=== PATIENT | male | born 1975 | race Caucasian/White ===

== ENCOUNTER 2022-04-02 23:31 | Inpatient (IN) | payer OTHER ==
[2022-04-03] MEDS ORDERED: SODIUM CHLORIDE 1,000 ML IV STA (00:32)
[2022-04-03] MEDS ORDERED: DALBAVANCIN HCL 1,500 MG in DEXTROSE 5%-WATER - 500 ML IVPB ONE (00:59)
[2022-04-03] MEDS ORDERED: MAGNESIUM SULF 50% (8.12 MEQ/2 ML-1 GM VIAL) IVPB ONE (01:03)
[2022-04-03] MEDS ORDERED: INSULIN REGULAR HUMAN 100 UNITS/ML *VIAL IVPUSH ONE (01:03)
[2022-04-03] MEDS ORDERED: DALBAVANCIN HCL 500 MG VIAL (RESTRICTED TO ID ONLY) IVPB ONE (01:14)
[2022-04-03] MEDS ORDERED: MAGNESIUM SULFATE IN WATER 2 GM/50 ML IVPB IVPB ONE (01:15)
[2022-04-03 01:47] LABS: VENOUS BASE EXCESS -0.5 mmol/L (-2-2); VENOUS O2 SATURATION 38.7 % (70-80); VENOUS PCO2 51.5 mmHg (38-52); VENOUS PH 7.323 (7.310-7.410)
[2022-04-03 01:51] LABS: BASO % 0.4 % (0-2.0); EOS % 0.5 % (0-4.5); HEMATOCRIT 32.5 % (35.4-49); HEMOGLOBIN 10.3 GM/dL (11.7-16.9); LYMPH % 21.1 % (8-40); MCH 33.5 pg (25.7-33.7); MCHC 31.7 g/dl (32.0-35.9); MEAN CELL VOLUME 105.7 fl (80-96); MEAN PLT VOLUME 9.1 fl (7.5-11.1); MONO % 7.4 % (3.8-10.2); NEUT % 70.6 % (42.8-82.8); PLATELET COUNT 240 10^3/uL (134-434); RBC 3.07 M/mm3 (4.00-5.60); RDW 15.4 % (11.9-15.9); WHITE BLOOD COUNT 5.6 K/mm3 (4.0-10.0)
[2022-04-03 02:09] LABS: ALBUMIN 2.6 g/dl (3.4-5.0); BLOOD UREA NITROGEN 13.5 mg/dL (7-18); CALCIUM 8.8 mg/dL (8.5-10.1); CO2 23 mmol/L (21-32); MAGNESIUM 1.9 mg/dL (1.8-2.4)
[2022-04-03 02:11] LABS: SGOT/AST 26 U/L (15-37); SGPT/ALT 27 U/L (13-61)
[2022-04-03 02:13] LABS: BILIRUBIN,TOTAL 0.3 mg/dL (0.2-1)
[2022-04-03 02:14] LABS: ALK PHOS 172 U/L (45-117)
[2022-04-03 02:18] LABS: ANION GAP 8 MMOL/L (8-16); CHLORIDE 100 mmol/L (98-107); GLUCOSE,RANDOM 676 mg/dL (74-106); SODIUM 132 mmol/L (136-145); TOT PROT 7.9 g/dl (6.4-8.2)
[2022-04-03] MEDS ORDERED: INSULIN REGULAR HUMAN 100 UNITS/ML *VIAL SQ ONE ×2 (02:39→03:22)
[2022-04-03 03:16] LABS: ANISOCYTOSIS 0; MACROCYTOSIS 0; TEAR DROP CELLS 1+
[2022-04-03] MEDS ORDERED: CLINDAMYCIN 600MG PREMIX IVPB 600 MG/50 ML BAG IVPB ONE (04:10)
[2022-04-03 05:47] LABS: PH,URINE 5.5 (5.0-8.0); URINE APPEARANCE CLEAR; URINE BILIRUBIN NEGATIVE (NEGATIVE); URINE COLOR YELLOW; URINE GLUCOSE (UA) 3+ (NEGATIVE); URINE KETONE NEGATIVE (NEGATIVE); URINE LEUK ESTERASE NEGATIVE (NEGATIVE); URINE NITRITE NEGATIVE (NEGATIVE); URINE PROTEIN TRACE (NEGATIVE); URINE UROBILINOGEN 0.2 mg/dL (0.2-1.0)
[2022-04-03] MEDS ORDERED: LORazepam 2 MG/ML SDV VIAL IVPUSH PRN (06:16)
[2022-04-03] MEDS ORDERED: THIAMINE HCL 200 MG/2 ML VIAL IVPB ONE ×2 (07:15→13:00)
[2022-04-03] MEDS ORDERED: CLINDAMYCIN 600MG PREMIX IVPB 600 MG/50 ML BAG IVPB SCH (09:00)
[2022-04-03] MEDS: FOLIC ACID 1 MG TABLET (FP) PO SCH (10:00)
[2022-04-03] MEDS ORDERED: ENOXAPARIN NA (PORCINE) 40 MG/0.4 ML DISP.SYRIN SQ SCH (10:00)
[2022-04-03] MEDS: THIAMINE HCL 100 MG TABLET (FP) PO SCH (10:00)
[2022-04-03] MEDS: ENOXAPARIN NA (PORCINE) 30 MG/0.3 ML DISP.SYRIN SQ SCH (10:00)
[2022-04-03] MEDS: PIPERACILLIN/TAZOB 3.375 GM 3.375 GM in DEXTROSE 5%-WATER - 50 ML IVPB SCH ×2 (10:40→17:32)
[2022-04-03] MEDS: INSULIN (LEVEMIR) 100 UNITS/ML UNITS SQ SCH ×2 (11:40→22:12)
[2022-04-03 12:17] LABS: HEMOGLOBIN 9.2 GM/dL (11.7-16.9); MCH 33.6 pg (25.7-33.7); MCHC 32.7 g/dl (32.0-35.9); MEAN CELL VOLUME 102.6 fl (80-96); MEAN PLT VOLUME 8.5 fl (7.5-11.1); PLATELET COUNT 226 10^3/uL (134-434); RBC 2.73 M/mm3 (4.00-5.60); RDW 14.8 % (11.9-15.9); WHITE BLOOD COUNT 4.8 K/mm3 (4.0-10.0)
[2022-04-03 12:35] LABS: CALCIUM 8.4 mg/dL (8.5-10.1)
[2022-04-03 12:36] LABS: ALBUMIN 2.2 g/dl (3.4-5.0); BLOOD UREA NITROGEN 8.2 mg/dL (7-18)
[2022-04-03 12:37] LABS: MAGNESIUM 1.8 mg/dL (1.8-2.4)
[2022-04-03 12:40] LABS: BILIRUBIN,TOTAL 0.3 mg/dL (0.2-1); CREATININE 0.6 mg/dL (0.55-1.3); PHOSPHOROUS 4.3 mg/dL (2.5-4.9)
[2022-04-03] MEDS: INSULIN SLIDING SCALE (NOVOLOG) 1 VIAL SQ SCH ×4 (12:42→22:13)
[2022-04-03 12:43] LABS: TOT PROT 6.6 g/dl (6.4-8.2)
[2022-04-03 13:38] LABS: ERYTHROCYTE SEDIMENTATION RATE 84 mm/hr (0-10)
[2022-04-03 17:58] LABS: SYPHILIS W/ RPR CONF NON-REACTIVE (NONREACTIVE)
[2022-04-03 18:26] LABS: HIV INTERPRETATION NEGATIVE (NEGATIVE)
[2022-04-03] MEDS: DOXYCYCLINE INJECTION 100 MG in DEXTROSE 5%-WATER 100 ML IVPB SCH (22:12)
[2022-04-04] MEDS: PIPERACILLIN/TAZOB 3.375 GM 3.375 GM in DEXTROSE 5%-WATER - 50 ML IVPB SCH ×3 (01:24→17:17)
[2022-04-04] MEDS: INSULIN SLIDING SCALE (NOVOLOG) 1 VIAL SQ SCH ×4 (07:02→22:41)
[2022-04-04] MEDS: SODIUM CHLORIDE 1,000 ML IV SCH ×2 (07:04→15:31)
[2022-04-04] MEDS: DOXYCYCLINE INJECTION 100 MG in DEXTROSE 5%-WATER 100 ML IVPB SCH ×2 (09:37→22:41)
[2022-04-04] MEDS: ENOXAPARIN NA (PORCINE) 30 MG/0.3 ML DISP.SYRIN SQ SCH (09:40)
[2022-04-04] MEDS: FOLIC ACID 1 MG TABLET (FP) PO SCH (09:40)
[2022-04-04] MEDS: THIAMINE HCL 100 MG TABLET (FP) PO SCH (09:40)
[2022-04-04] MEDS: INSULIN (LEVEMIR) 100 UNITS/ML UNITS SQ SCH (11:13)
[2022-04-04 14:40] VITALS: BMI 16.9
[2022-04-05] MEDS: PIPERACILLIN/TAZOB 3.375 GM 3.375 GM in DEXTROSE 5%-WATER - 50 ML IVPB SCH ×3 (02:54→18:30)
[2022-04-05] MEDS ORDERED: INSULIN (LEVEMIR) 100 UNITS/ML UNITS SQ SCH (07:00)
[2022-04-05] MEDS: INSULIN SLIDING SCALE (NOVOLOG) 1 VIAL SQ SCH ×3 (07:28→22:03)
[2022-04-05] MEDS: DOXYCYCLINE INJECTION 100 MG in DEXTROSE 5%-WATER 100 ML IVPB SCH ×2 (09:04→22:02)
[2022-04-05] MEDS: FOLIC ACID 1 MG TABLET (FP) PO SCH (09:06)
[2022-04-05] MEDS: THIAMINE HCL 100 MG TABLET (FP) PO SCH (09:06)
[2022-04-05] MEDS: ENOXAPARIN NA (PORCINE) 30 MG/0.3 ML DISP.SYRIN SQ SCH (09:08)
[2022-04-05] MEDS ORDERED: SODIUM CHLORIDE 500 ML IV STA (10:04)
[2022-04-05 10:42] LABS: BASO % 0.4 % (0-2.0); EOS % 0.7 % (0-4.5); HEMATOCRIT 29.3 % (35.4-49); HEMOGLOBIN 9.7 GM/dL (11.7-16.9); LYMPH % 24.1 % (8-40); MCH 34.4 pg (25.7-33.7); MEAN CELL VOLUME 104.1 fl (80-96); MEAN PLT VOLUME 8.1 fl (7.5-11.1); MONO % 7.1 % (3.8-10.2); NEUT % 67.7 % (42.8-82.8); PLATELET COUNT 227 10^3/uL (134-434); RBC 2.81 M/mm3 (4.00-5.60); RDW 15.1 % (11.9-15.9); WHITE BLOOD COUNT 5.6 K/mm3 (4.0-10.0)
[2022-04-05 10:57] LABS: ALBUMIN 2.4 g/dl (3.4-5.0); BLOOD UREA NITROGEN 7.4 mg/dL (7-18); CALCIUM 9.1 mg/dL (8.5-10.1)
[2022-04-05 11:00] LABS: CREATININE 0.6 mg/dL (0.55-1.3)
[2022-04-05 11:02] LABS: BILIRUBIN,TOTAL 0.3 mg/dL (0.2-1)
[2022-04-05] MEDS ORDERED: DEXTROSE 50%-WATER 25 GM/50 ML DISP.SYRIN IVPUSH ONE (11:57)
[2022-04-05] MEDS ORDERED: DEXTROSE 50%-WATER 25 GM/50 ML DISP.SYRIN ONE (11:58)
[2022-04-05] MEDS ORDERED: D5-1/2NS+20 MEQ KCL - 20 MEQ/1,000 ML INFUS.BAG IV SCH ×2 (12:00→17:13)
[2022-04-05] MEDS ORDERED: PROPOFOL 60 ML ONE (15:39)
[2022-04-05] MEDS ORDERED: MIDAZOLAM HCL 2 MG/2 ML SINGLE DOSE VIAL ONE (15:39)
[2022-04-05] MEDS ORDERED: LIDOCAINE HCL 2% 100 MG/5 ML DISP.SYRIN ONE (15:52)
[2022-04-05] MEDS ORDERED: IBUPROFEN 800 MG/8 ML IJ IVPB PRN (17:09)
[2022-04-05] MEDS ORDERED: ACETAMINOPHEN 325 MG TABLET (FP) PO PRN (17:09)
[2022-04-05] MEDS ORDERED: LORazepam 2 MG/ML SDV VIAL IVPUSH PRN (17:13)
[2022-04-05] MEDS ORDERED: LACTATED RINGERS SOLUTION 1,000 ML IV SCH (17:15)
[2022-04-05] MEDS ORDERED: INSULIN (NOVOLOG) ASPART 100 UNITS/ML 10ML VIAL ONE (21:55)
[2022-04-06] MEDS: PIPERACILLIN/TAZOB 3.375 GM 3.375 GM in DEXTROSE 5%-WATER - 50 ML IVPB SCH ×3 (02:38→18:26)
[2022-04-06] MEDS ORDERED: INSULIN (LEVEMIR) 100 UNITS/ML UNITS SQ SCH ×2 (07:00)
[2022-04-06] MEDS: INSULIN SLIDING SCALE (NOVOLOG) 1 VIAL SQ SCH ×4 (07:07→21:31)
[2022-04-06] MEDS: FOLIC ACID 1 MG TABLET (FP) PO SCH (09:21)
[2022-04-06] MEDS: THIAMINE HCL 100 MG TABLET (FP) PO SCH (09:21)
[2022-04-06] MEDS: ENOXAPARIN NA (PORCINE) 30 MG/0.3 ML DISP.SYRIN SQ SCH (09:23)
[2022-04-06 10:25] LABS: HEMOGLOBIN 9.3 GM/dL (11.7-16.9); MCH 33.4 pg (25.7-33.7); MCHC 32.1 g/dl (32.0-35.9); MEAN PLT VOLUME 8.5 fl (7.5-11.1); PLATELET COUNT 242 10^3/uL (134-434); RBC 2.79 M/mm3 (4.00-5.60); RDW 14.7 % (11.9-15.9); WHITE BLOOD COUNT 5.4 K/mm3 (4.0-10.0)
[2022-04-06 10:56] LABS: CALCIUM 8.7 mg/dL (8.5-10.1)
[2022-04-06 10:57] LABS: BLOOD UREA NITROGEN 6.5 mg/dL (7-18)
[2022-04-06 11:00] LABS: CREATININE 0.6 mg/dL (0.55-1.3)
[2022-04-06] MEDS: DOXYCYCLINE INJECTION 100 MG in DEXTROSE 5%-WATER 100 ML IVPB SCH ×2 (11:00→21:32)
[2022-04-06] MEDS ORDERED: INSULIN (NOVOLOG) ASPART 100 UNITS/ML 10ML VIAL ONE (11:10)
[2022-04-07] MEDS: PIPERACILLIN/TAZOB 3.375 GM 3.375 GM in DEXTROSE 5%-WATER - 50 ML IVPB SCH ×3 (02:07→17:46)
[2022-04-07] MEDS: INSULIN SLIDING SCALE (NOVOLOG) 1 VIAL SQ SCH ×4 (06:22→21:26)
[2022-04-07] MEDS: INSULIN (NOVOLOG) ASPART 100 UNITS/ML 10ML VIAL SQ SCH ×3 (06:23→17:08)
[2022-04-07] MEDS ORDERED: INSULIN (LEVEMIR) 100 UNITS/ML UNITS SQ SCH (07:00)
[2022-04-07] MEDS: DOXYCYCLINE INJECTION 100 MG in DEXTROSE 5%-WATER 100 ML IVPB SCH ×2 (09:13→21:25)
[2022-04-07] MEDS: ENOXAPARIN NA (PORCINE) 30 MG/0.3 ML DISP.SYRIN SQ SCH (09:13)
[2022-04-07] MEDS: FOLIC ACID 1 MG TABLET (FP) PO SCH (09:13)
[2022-04-07] MEDS: THIAMINE HCL 100 MG TABLET (FP) PO SCH (09:13)
[2022-04-07] MEDS: LACTOBACILLUS ACIDOPHILUS 1 TABLET PO SCH (17:47)
[2022-04-07] MEDS: INSULIN (LEVEMIR) 100 UNITS/ML UNITS SQ SCH (21:24)
[2022-04-08] MEDS: PIPERACILLIN/TAZOB 3.375 GM 3.375 GM in DEXTROSE 5%-WATER - 50 ML IVPB SCH ×3 (01:05→17:19)
[2022-04-08] MEDS: INSULIN (LEVEMIR) 100 UNITS/ML UNITS SQ SCH ×2 (06:25→21:20)
[2022-04-08] MEDS: INSULIN SLIDING SCALE (NOVOLOG) 1 VIAL SQ SCH ×4 (06:26→21:21)
[2022-04-08] MEDS: INSULIN (NOVOLOG) ASPART 100 UNITS/ML 10ML VIAL SQ SCH ×3 (06:27→17:25)
[2022-04-08] MEDS: FOLIC ACID 1 MG TABLET (FP) PO SCH (09:07)
[2022-04-08] MEDS: ENOXAPARIN NA (PORCINE) 30 MG/0.3 ML DISP.SYRIN SQ SCH (09:07)
[2022-04-08] MEDS: THIAMINE HCL 100 MG TABLET (FP) PO SCH (09:07)
[2022-04-08] MEDS: LACTOBACILLUS ACIDOPHILUS 1 TABLET PO SCH (09:07)
[2022-04-08] MEDS: DOXYCYCLINE INJECTION 100 MG in DEXTROSE 5%-WATER 100 ML IVPB SCH ×2 (09:08→21:22)
[2022-04-08 13:20] LABS: BASO % 0.8 % (0-2.0); EOS % 0.4 % (0-4.5); HEMATOCRIT 31.5 % (35.4-49); HEMOGLOBIN 10.2 GM/dL (11.7-16.9); LYMPH % 26.7 % (8-40); MCH 33.6 pg (25.7-33.7); MCHC 32.3 g/dl (32.0-35.9); MEAN CELL VOLUME 103.8 fl (80-96); MEAN PLT VOLUME 8.7 fl (7.5-11.1); MONO % 11.3 % (3.8-10.2); NEUT % 60.8 % (42.8-82.8); PLATELET COUNT 228 10^3/uL (134-434); RBC 3.03 M/mm3 (4.00-5.60); RDW 14.8 % (11.9-15.9); WHITE BLOOD COUNT 5.3 K/mm3 (4.0-10.0)
[2022-04-08 13:47] LABS: CALCIUM 8.6 mg/dL (8.5-10.1)
[2022-04-08 13:48] LABS: ALBUMIN 2.7 g/dl (3.4-5.0); BLOOD UREA NITROGEN 12.9 mg/dL (7-18)
[2022-04-08 13:51] LABS: CREATININE 0.6 mg/dL (0.55-1.3)
[2022-04-08 13:52] LABS: BILIRUBIN,TOTAL 0.3 mg/dL (0.2-1); TOT PROT 7.5 g/dl (6.4-8.2)
[2022-04-08] MEDS ORDERED: ACETAMINOPHEN 325 MG TABLET (FP) PO PRN (15:35)
[2022-04-08] MEDS: LIPASE/PROTEASE/AMYLASE 6,000 UNIT CAPSULE PO SCH (17:20)
[2022-04-08] MEDS ORDERED: LIPASE/PROTEASE/AMYLASE 6,000 UNIT CAPSULE PO SCH (17:30)
[2022-04-09] MEDS: PIPERACILLIN/TAZOB 3.375 GM 3.375 GM in DEXTROSE 5%-WATER - 50 ML IVPB SCH ×3 (01:28→17:08)
[2022-04-09] MEDS: INSULIN SLIDING SCALE (NOVOLOG) 1 VIAL SQ SCH ×4 (06:20→21:07)
[2022-04-09] MEDS: INSULIN (NOVOLOG) ASPART 100 UNITS/ML 10ML VIAL SQ SCH ×3 (06:21→17:05)
[2022-04-09] MEDS: INSULIN (LEVEMIR) 100 UNITS/ML UNITS SQ SCH ×2 (06:22→21:07)
[2022-04-09] MEDS: FOLIC ACID 1 MG TABLET (FP) PO SCH (09:11)
[2022-04-09] MEDS: LIPASE/PROTEASE/AMYLASE 6,000 UNIT CAPSULE PO SCH ×3 (09:11→17:05)
[2022-04-09] MEDS: LACTOBACILLUS ACIDOPHILUS 1 TABLET PO SCH (09:11)
[2022-04-09] MEDS: THIAMINE HCL 100 MG TABLET (FP) PO SCH (09:11)
[2022-04-09] MEDS: ENOXAPARIN NA (PORCINE) 30 MG/0.3 ML DISP.SYRIN SQ SCH (09:12)
[2022-04-09] MEDS: DOXYCYCLINE INJECTION 100 MG in DEXTROSE 5%-WATER 100 ML IVPB SCH ×2 (09:12→21:06)
[2022-04-09] MEDS ORDERED: ACETAMINOPHEN 325 MG TABLET (FP) PO PRN (11:57)
[2022-04-09] MEDS ORDERED: INSULIN (NOVOLOG) ASPART 100 UNITS/ML 10ML VIAL ONE (20:51)
[2022-04-10] MEDS: PIPERACILLIN/TAZOB 3.375 GM 3.375 GM in DEXTROSE 5%-WATER - 50 ML IVPB SCH ×3 (01:14→18:27)
[2022-04-10] MEDS: oxyCODONE HCL 5 MG TABLET PO PRN (06:26)
[2022-04-10] MEDS: INSULIN (LEVEMIR) 100 UNITS/ML UNITS SQ SCH ×2 (06:27→21:46)
[2022-04-10] MEDS: INSULIN (NOVOLOG) ASPART 100 UNITS/ML 10ML VIAL SQ SCH ×3 (06:28→17:19)
[2022-04-10] MEDS: INSULIN SLIDING SCALE (NOVOLOG) 1 VIAL SQ SCH ×4 (06:28→21:50)
[2022-04-10] MEDS: LIPASE/PROTEASE/AMYLASE 6,000 UNIT CAPSULE PO SCH ×3 (08:43→17:19)
[2022-04-10] MEDS: FOLIC ACID 1 MG TABLET (FP) PO SCH (09:49)
[2022-04-10] MEDS: ENOXAPARIN NA (PORCINE) 30 MG/0.3 ML DISP.SYRIN SQ SCH (09:49)
[2022-04-10] MEDS: THIAMINE HCL 100 MG TABLET (FP) PO SCH (09:49)
[2022-04-10] MEDS: LACTOBACILLUS ACIDOPHILUS 1 TABLET PO SCH (09:49)
[2022-04-10] MEDS: DOXYCYCLINE INJECTION 100 MG in DEXTROSE 5%-WATER 100 ML IVPB SCH ×2 (10:52→21:41)
[2022-04-10] MEDS ORDERED: INSULIN (NOVOLOG) ASPART 100 UNITS/ML 10ML VIAL ONE (11:40)
[2022-04-11] MEDS: PIPERACILLIN/TAZOB 3.375 GM 3.375 GM in DEXTROSE 5%-WATER - 50 ML IVPB SCH ×3 (01:41→18:33)
[2022-04-11] MEDS: INSULIN (LEVEMIR) 100 UNITS/ML UNITS SQ SCH ×2 (06:10→21:36)
[2022-04-11] MEDS: INSULIN SLIDING SCALE (NOVOLOG) 1 VIAL SQ SCH ×4 (06:11→21:37)
[2022-04-11] MEDS: INSULIN (NOVOLOG) ASPART 100 UNITS/ML 10ML VIAL SQ SCH ×3 (06:11→17:14)
[2022-04-11] MEDS: LIPASE/PROTEASE/AMYLASE 6,000 UNIT CAPSULE PO SCH ×3 (08:22→17:17)
[2022-04-11] MEDS: ENOXAPARIN NA (PORCINE) 30 MG/0.3 ML DISP.SYRIN SQ SCH (09:29)
[2022-04-11] MEDS: THIAMINE HCL 100 MG TABLET (FP) PO SCH (09:30)
[2022-04-11] MEDS: FOLIC ACID 1 MG TABLET (FP) PO SCH (09:30)
[2022-04-11] MEDS: LACTOBACILLUS ACIDOPHILUS 1 TABLET PO SCH (09:30)
[2022-04-11] MEDS: DOXYCYCLINE INJECTION 100 MG in DEXTROSE 5%-WATER 100 ML IVPB SCH ×2 (10:15→21:36)
[2022-04-11] MEDS ORDERED: INSULIN (NOVOLOG) ASPART 100 UNITS/ML 10ML VIAL ONE (11:53)
[2022-04-11] MEDS: oxyCODONE HCL 5 MG TABLET PO PRN (15:05)
[2022-04-12] MEDS: PIPERACILLIN/TAZOB 3.375 GM 3.375 GM in DEXTROSE 5%-WATER - 50 ML IVPB SCH ×3 (01:28→17:26)
[2022-04-12] MEDS: INSULIN SLIDING SCALE (NOVOLOG) 1 VIAL SQ SCH ×4 (06:36→21:02)
[2022-04-12] MEDS: INSULIN (NOVOLOG) ASPART 100 UNITS/ML 10ML VIAL SQ SCH ×3 (06:36→16:45)
[2022-04-12] MEDS: INSULIN (LEVEMIR) 100 UNITS/ML UNITS SQ SCH ×2 (06:37→21:02)
[2022-04-12] MEDS ORDERED: INSULIN (LEVEMIR) 100 UNITS/ML UNITS SQ SCH (08:51)
[2022-04-12 09:10] VITALS: RESP 18
[2022-04-12] MEDS: LACTOBACILLUS ACIDOPHILUS 1 TABLET PO SCH (10:33)
[2022-04-12] MEDS: FOLIC ACID 1 MG TABLET (FP) PO SCH (10:33)
[2022-04-12] MEDS: DOXYCYCLINE INJECTION 100 MG in DEXTROSE 5%-WATER 100 ML IVPB SCH ×2 (10:33→21:02)
[2022-04-12] MEDS: ENOXAPARIN NA (PORCINE) 30 MG/0.3 ML DISP.SYRIN SQ SCH (10:33)
[2022-04-12] MEDS: THIAMINE HCL 100 MG TABLET (FP) PO SCH (10:33)
[2022-04-12] MEDS: LIPASE/PROTEASE/AMYLASE 6,000 UNIT CAPSULE PO SCH ×3 (10:34→17:26)
[2022-04-12 11:32] LABS: EOS % 0.8 % (0-4.5); HEMATOCRIT 28.9 % (35.4-49); HEMOGLOBIN 9.5 GM/dL (11.7-16.9); LYMPH % 22.1 % (8-40); MCH 33.3 pg (25.7-33.7); MEAN CELL VOLUME 101.1 fl (80-96); MONO % 12.2 % (3.8-10.2); NEUT % 63.9 % (42.8-82.8); PLATELET COUNT 191 10^3/uL (134-434); RBC 2.86 M/mm3 (4.00-5.60); RDW 14.4 % (11.9-15.9); WHITE BLOOD COUNT 5.8 K/mm3 (4.0-10.0)
[2022-04-12 11:55] LABS: CREATININE 0.6 mg/dL (0.55-1.3)
[2022-04-13] MEDS: PIPERACILLIN/TAZOB 3.375 GM 3.375 GM in DEXTROSE 5%-WATER - 50 ML IVPB SCH ×2 (01:21→10:07)
[2022-04-13 04:58] VITALS: PULSE 72
[2022-04-13] MEDS: INSULIN (LEVEMIR) 100 UNITS/ML UNITS SQ SCH (06:25)
[2022-04-13] MEDS: INSULIN (NOVOLOG) ASPART 100 UNITS/ML 10ML VIAL SQ SCH ×2 (06:26→12:32)
[2022-04-13] MEDS: INSULIN SLIDING SCALE (NOVOLOG) 1 VIAL SQ SCH ×2 (06:26→12:32)
[2022-04-13] MEDS: LIPASE/PROTEASE/AMYLASE 6,000 UNIT CAPSULE PO SCH ×2 (08:26→12:18)
[2022-04-13 09:52] VITALS: BP 102/68; TEMP 98.5
[2022-04-13] MEDS: ENOXAPARIN NA (PORCINE) 30 MG/0.3 ML DISP.SYRIN SQ SCH (10:08)
[2022-04-13] MEDS: DOXYCYCLINE INJECTION 100 MG in DEXTROSE 5%-WATER 100 ML IVPB SCH (10:08)
[2022-04-13] MEDS: LACTOBACILLUS ACIDOPHILUS 1 TABLET PO SCH (10:09)
[2022-04-13] MEDS: FOLIC ACID 1 MG TABLET (FP) PO SCH (10:09)
[2022-04-13] MEDS: THIAMINE HCL 100 MG TABLET (FP) PO SCH (10:09)
[2022-04-13] MEDS ORDERED: INSULIN (NOVOLOG) ASPART 100 UNITS/ML 10ML VIAL ONE (11:53)
== END 2022-04-13 13:54 | disposition home health service (06) | DRG 385 ==
LOC: JER 23:31 → JERBED 04-03 03:53 → OBSVTOIN 04-03 04:56 → J8W 04-03 06:57 → J6S 04-05 18:09
PROVIDERS: ADMIT Internal Medicine; ATTEND Internal Medicine
PROC: 0JBL0ZZ Excision of Right Upper Leg Subcutaneous Tissue and Fascia, Open Approach (ICD-10-PCS; 2022-04-05)
PROC: 0JBM0ZZ Excision of Left Upper Leg Subcutaneous Tissue and Fascia, Open Approach (ICD-10-PCS; principal; 2022-04-05 16:10)
DX: L73.2 Hidradenitis suppurativa (principal); E78.5 Hyperlipidemia, unspecified; E11.65 Type 2 diabetes mellitus with hyperglycemia; E87.1 Hypo-osmolality and hyponatremia; Z68.1 Body mass index [BMI] 19.9 or less, adult; R64 Cachexia; E86.0 Dehydration; I10 Essential (primary) hypertension; K86.1 Other chronic pancreatitis; F17.210 Nicotine dependence, cigarettes, uncomplicated; E11.40 Type 2 diabetes mellitus with diabetic neuropathy, unspecified; E11.43 Type 2 diabetes mellitus with diabetic autonomic (poly)neuropathy; K31.84 Gastroparesis; E11.649 Type 2 diabetes mellitus with hypoglycemia without coma; L02.214 Cutaneous abscess of groin; D64.9 Anemia, unspecified; F10.20 Alcohol dependence, uncomplicated; L03.119 Cellulitis of unspecified part of limb
CPT/HCPCS: 36415; 71045-TC-FY; 72194-TC; 80048; 80053; 80061; 81003; 82010; 82728; 82803; 82962; 83036; 83540; 83550; 83615; 83735; 84100; 84436; 84466; 85025; 85027; 85045; 85651; 86140; 86780; 87389; 87491; 87591; 87661; 88304-TC; 93005; 93010; 94760; 99285-25; C9803-CS; G0378; J0875; Q9967; U0003; U0005